=== PATIENT | female | born 1935 | race Caucasian/White ===

== ENCOUNTER 2021-08-01 10:28 | Inpatient (IN) | payer OTHER ==
[2021-08-01] MEDS ORDERED: SODIUM CHLORIDE FOR INHALATION 3 ML VIAL.NEB IH ONE (11:16)
[2021-08-01 12:06] LABS: HEMATOCRIT 28.1 % (32.4-45.2); HEMOGLOBIN 9.5 GM/dL (10.7-15.3); MCH 34.9 pg (25.7-33.7); MEAN CELL VOLUME 102.9 fl (80-96); MEAN PLT VOLUME 7.9 fl (7.5-11.1); PLATELET COUNT 353 10^3/uL (134-434); RBC 2.73 M/mm3 (3.60-5.2); WHITE BLOOD COUNT 7.3 K/mm3 (4.0-10.0)
[2021-08-01 12:14] LABS: INR 0.89 (0.83-1.09)
[2021-08-01 12:21] LABS: CHLORIDE 100 mmol/L (98-107); SODIUM 138 mmol/L (136-145)
[2021-08-01 12:23] LABS: ALBUMIN 3.5 g/dl (3.4-5.0); CALCIUM 8.9 mg/dL (8.5-10.1)
[2021-08-01 12:24] LABS: ANION GAP 8 MMOL/L (8-16); BLOOD UREA NITROGEN 16.4 mg/dL (7-18); CO2 30 mmol/L (21-32); GLUCOSE,RANDOM 186 mg/dL (74-106)
[2021-08-01 12:27] LABS: CREATININE 0.6 mg/dL (0.55-1.3); LIPASE 109 U/L (73-393); SGOT/AST 109 U/L (15-37); SGPT/ALT 157 U/L (13-61)
[2021-08-01 12:28] LABS: BILIRUBIN,TOTAL 0.5 mg/dL (0.2-1); TOT PROT 6.5 g/dl (6.4-8.2)
[2021-08-01 12:30] LABS: ALK PHOS 113 U/L (45-117)
[2021-08-01 12:31] LABS: MAGNESIUM 2.5 mg/dL (1.8-2.4)
[2021-08-01 12:45] LABS: ANISOCYTOSIS 1+; MACROCYTOSIS 0; PLATELET ESTIMATE NORMAL
[2021-08-01] MEDS: ACETAMINOPHEN 650 MG/20.3 ML ORAL SOLUTION (CUPS) GT PRN (23:44)
[2021-08-02] MEDS ORDERED: ALBUTEROL SO4 2.5/IPRATROPIUM 0.5 INH SOL 3 ML VIAL.NEB. NEB PRN (00:53)
[2021-08-02 01:12] VITALS: BMI 18.6
[2021-08-02] MEDS ORDERED: ACETYLCYSTEINE 20% 200MG/ML 30 ML VIAL *FOR ORAL / INH USE ONLY NEB ONE ×2 (03:31)
[2021-08-02] MEDS ORDERED: SODIUM CHLORIDE FOR INHALATION 3 ML VIAL.NEB IH PRN (03:53)
[2021-08-02] MEDS ORDERED: SENNOSIDES 8.8 MG/5 ML BULK BOTTLE GT PRN (04:06)
[2021-08-02] MEDS ORDERED: DOCUSATE NA 100 MG/10 ML UNIT-DOSE CUPS GT PRN (04:06)
[2021-08-02] MEDS ORDERED: SODIUM CHLORIDE 1,000 ML IV SCH (04:45)
[2021-08-02] MEDS: LEVOTHYROXINE NA 125 MCG TABLET (FP) GT SCH (06:06)
[2021-08-02] MEDS ORDERED: DOCUSATE SODIUM 100 MG CAPSULE (FP) PO PRN (08:40)
[2021-08-02] MEDS ORDERED: PT OWN MED DRAWER 7, Y5N ONE (09:43)
[2021-08-02] MEDS ORDERED: ASPIRIN 81 MG CHEWABLE TABLETS PO SCH (10:00)
[2021-08-02] MEDS ORDERED: TIOTROPIUM BROMIDE 2.5 MCG (SPIRIVA) RESPIMAT INHALER IH SCH (10:00)
[2021-08-02] MEDS ORDERED: ASPIRIN COATED 81 MG TABLET.EC PO SCH (10:00)
[2021-08-02 10:09] LABS: BASO % 0.7 % (0-2.0); EOS % 0.2 % (0-4.5); HEMATOCRIT 23.2 % (32.4-45.2); LYMPH % 7.9 % (8-40); MCH 35.3 pg (25.7-33.7); MCHC 34.4 g/dl (32.0-36.0); MEAN CELL VOLUME 102.5 fl (80-96); MEAN PLT VOLUME 7.5 fl (7.5-11.1); MONO % 4.9 % (3.8-10.2); NEUT % 86.3 % (42.8-82.8); PLATELET COUNT 285 10^3/uL (134-434); RBC 2.27 M/mm3 (3.60-5.2); RDW 16.1 % (11.6-15.6); WHITE BLOOD COUNT 4.3 K/mm3 (4.0-10.0)
[2021-08-02 10:37] LABS: ALBUMIN 2.8 g/dl (3.4-5.0); CALCIUM 8.4 mg/dL (8.5-10.1)
[2021-08-02] MEDS: FERROUS SO4 300 MG/5 ML ORAL SOLN UNIT DOSE CUPS GT SCH (10:37)
[2021-08-02] MEDS: ASPIRIN 81 MG CHEWABLE TABLETS GT SCH (10:37)
[2021-08-02 10:40] LABS: BLOOD UREA NITROGEN 14.2 mg/dL (7-18); CREATININE 0.6 mg/dL (0.55-1.3)
[2021-08-02 10:41] LABS: BILIRUBIN,TOTAL 0.4 mg/dL (0.2-1); TOT PROT 5.5 g/dl (6.4-8.2)
[2021-08-02] MEDS: UMECLIDINIUM/VILANTEROL (ANORO) 62.5/25 MCG INHALER IH SCH (10:52)
[2021-08-02] MEDS: MULTIVIT-MINERALS ORAL LIQUID GT SCH (10:52)
[2021-08-02] MEDS: ACETAMINOPHEN 650 MG/20.3 ML ORAL SOLUTION (CUPS) GT PRN (13:07)
[2021-08-03] MEDS: LEVOTHYROXINE NA 125 MCG TABLET (FP) GT SCH (07:07)
[2021-08-03] MEDS ORDERED: PT OWN MED DRAWER 7, Y5N ONE (11:29)
[2021-08-03] MEDS: ASPIRIN 81 MG CHEWABLE TABLETS GT SCH (11:34)
[2021-08-03] MEDS: FERROUS SO4 300 MG/5 ML ORAL SOLN UNIT DOSE CUPS GT SCH (11:34)
[2021-08-03] MEDS: MULTIVIT-MINERALS ORAL LIQUID GT SCH (11:35)
[2021-08-03] MEDS: UMECLIDINIUM/VILANTEROL (ANORO) 62.5/25 MCG INHALER IH SCH (11:36)
[2021-08-03 20:39] VITALS: BP 122/68; PULSE 81; TEMP 98.1
== END 2021-08-03 20:48 | DRG 205 ==
LOC: JER 10:28 → JERBED 15:26 → J5S 21:57
PROVIDERS: ADMIT Internal Medicine; ATTEND Internal Medicine
DX: T17.590A Other foreign object in bronchus causing asphyxiation, initial encounter (principal); J96.21 Acute and chronic respiratory failure with hypoxia; J96.20 Acute and chronic respiratory failure, unspecified whether with hypoxia or hypercapnia; R64 Cachexia; Z68.1 Body mass index [BMI] 19.9 or less, adult; G62.9 Polyneuropathy, unspecified; E03.9 Hypothyroidism, unspecified; C73 Malignant neoplasm of thyroid gland; Z93.0 Tracheostomy status; E78.5 Hyperlipidemia, unspecified; J43.9 Emphysema, unspecified; I10 Essential (primary) hypertension; R91.1 Solitary pulmonary nodule; X58.XXXA Exposure to other specified factors, initial encounter; Z93.1 Gastrostomy status
CPT/HCPCS: 36415; 71045-TC-FY; 71275-TC; 74174-TC; 80053; 82550; 83690; 83735; 84443; 84484; 85025; 85610; 85730; 87804; 93005; 93010; 94640; 99285-25; C9803; U0003; U0005

== ENCOUNTER 2021-08-05 07:36 | Emergency (ER) | payer OTHER ==
[2021-08-05] MEDS ORDERED: ALBUTEROL SO4 2.5/IPRATROPIUM 0.5 INH SOL 3 ML VIAL.NEB. NEB ONE ×2 (07:58→08:23)
[2021-08-05 09:11] VITALS: BMI 18.8
[2021-08-06 10:28] VITALS: BP 96/51; PULSE 80; TEMP 98
== END 2021-08-06 11:10 ==
LOC: JER 07:36
PROC: 3E0F7GC Introduction of Other Therapeutic Substance into Respiratory Tract, Via Natural or Artificial Opening (ICD-10-PCS; principal; 2021-08-05)
DX: J95.09 Other tracheostomy complication (principal)
CPT/HCPCS: 71045-TC-FY; 93005; 93010; 99284-25